=== PATIENT | female | born 1945 | race African-American/Black ===

== ENCOUNTER → 2016-11-29 | Outpatient (CLI) | payer OTHER ==
[~2016-11-29] MED LIST: ALDACTONE25 MG PO; AUGMENTIN 875875 MG PO; CARDURA4 MG PO; COLACE100 MG PO; ENOXAPARIN60 MG/0.1 SUBQ; NORVASC10 MG PO; PROMETHAZINE-C120 ML PO; ROBITUSSIN100 MG/53 PO
== END ==
LOC: RAD 11:49
DX: R06.02 Shortness of breath (principal)

== ENCOUNTER → 2016-12-02 | Outpatient (CLI) | payer OTHER ==
[2016-12-02 13:44] LABS: CALCIUM 8.7 mg/dL (8.5-10.1); CREATININE 0.8 mg/dL (0.6-1.0); POTASSIUM 4.7 mmol/L (3.5-5.1)
[2016-12-02 13:48] LABS: ALBUMIN 2.9 g/dL (3.4-5.0); PROTIME 10.7 Seconds (9.3-11.4); TOTAL BILIRUBIN 0.3 mg/dL (<0.1-1.0); TOTAL PROTEIN 7.8 g/dL (6.4-8.2)
== END | disposition home or self-care (01) ==
LOC: ULTRA 13:08
PROVIDERS: Registered Nurse
DX: J90 Pleural effusion, not elsewhere classified (principal)

== ENCOUNTER → 2016-12-24 | Outpatient (CLI) | payer OTHER ==
[~2016-12-24] VITALS: Ht 165.1 cm; Wt 53.5 kg
[2016-12-24 09:31] VITALS: BP 150/82
== END | disposition home or self-care (01) ==
LOC: SPEC 06:41
DX: C34.92 Malignant neoplasm of unspecified part of left bronchus or lung (principal); J90 Pleural effusion, not elsewhere classified; I10 Essential (primary) hypertension; Z90.710 Acquired absence of both cervix and uterus; Z98.890 Other specified postprocedural states

== ENCOUNTER → 2016-12-31 | Outpatient (CLI) | payer OTHER ==
[~2016-12-31] VITALS: Ht 165.1 cm; Wt 52.2 kg
[2016-12-31 14:19] VITALS: BP 103/61
== END | disposition home or self-care (01) ==
LOC: SPEC 12:08
DX: T85.898A Other specified complication of other internal prosthetic devices, implants and grafts, initial encounter (principal); I10 Essential (primary) hypertension; I50.9 Heart failure, unspecified; Z85.118 Personal history of other malignant neoplasm of bronchus and lung

== ENCOUNTER → 2017-01-13 | Outpatient (CLI) | payer OTHER | LOC: RAD 16:23 | DX: J91.0 Malignant pleural effusion (principal) ==

== ENCOUNTER → 2017-01-16 | Outpatient (CLI) | payer OTHER | LOC: RAD 11:51 | DX: J90 Pleural effusion, not elsewhere classified (principal) ==

== ENCOUNTER → 2017-01-20 | Outpatient (CLI) | payer OTHER | LOC: RAD 08:42 | DX: J90 Pleural effusion, not elsewhere classified (principal) ==

== ENCOUNTER → 2017-01-28 | Outpatient (CLI) | payer OTHER | LOC: RAD 09:08 | DX: J90 Pleural effusion, not elsewhere classified (principal) ==

== ENCOUNTER → 2017-02-18 | Outpatient (CLI) | payer OTHER | LOC: RAD 09:26 | DX: J90 Pleural effusion, not elsewhere classified (principal) ==

== ENCOUNTER → 2017-03-12 | Outpatient (CLI) | payer OTHER, SELFPAY | LOC: RAD 08:13 | DX: J90 Pleural effusion, not elsewhere classified (principal) ==

== ENCOUNTER → 2017-03-14 | Outpatient (CLI) | payer OTHER, SELFPAY ==
[~2017-03-14] VITALS: Ht 162.6 cm; Wt 51.3 kg
[2017-03-14 10:05] VITALS: BP 140/86
== END ==
LOC: SPEC 06:20
DX: Z45.2 Encounter for adjustment and management of vascular access device (principal); Z90.710 Acquired absence of both cervix and uterus; Z85.118 Personal history of other malignant neoplasm of bronchus and lung; I10 Essential (primary) hypertension

== ENCOUNTER 2017-04-21 10:31 | Emergency (ER) | payer OTHER ==
[~2017-04-21] VITALS: Ht 175.3 cm; Wt 54.0 kg
--- NOTE | ~2017-04-21 | EKG ---
[address] [address] ELECTROCARDIOGRAM REPORT Name: ABBYCHRISTY JACE Room #: [facility]P [id number] Admission: 04/21/17 Attend Phys: Discharge: 04/21/17 Date of : 49 Report #: [id number] THIS REPORT FOR: //name// [facility] ED Test Date: 2017-04-21 Test Time: 10:48:46 Pat Name: CHRISTY MORA Department: Room: Gender: F Sales Engagement Executive: ROB : 1945 Requested By: Josy Estrada Order Number: [id number] MD: Ralf Weems Measurements Intervals [place] Rate: 114 P: 45 MS: 157 QRS: -44 QRSD: 77 T: 16 QT: 319 QTc: 440 Interpretive Statements Sinus tachycardia Inferior infarct, old No previous ECG available for comparison Electronically Signed On 04-21-2017 14:07:37 CDT by Ralf Weems [email or web address] <ELECTRONICALLY SIGNED> By: Ralf Weems MD 04/21/17 1407 [id number] [id number] Ralf Weems MD /NOHEMY
[2017-04-21 11:08] LABS: HEMATOCRIT 23.8 % (37.0-47.0); HEMOGLOBIN 7.7 gm/dL (12.0-15.0); MCH 24.4 pg (26.0-34.0); MCHC 32.5 g/dL (28.0-37.0); MCV 75.1 fL (80.0-100.0); PLATELET COUNT 335 thou/uL (150-400); RBC 3.17 mil/uL (4.20-5.00); RDW 15.9 % (10.5-14.5)
[2017-04-21 11:10] LABS: MANUAL DIFF YES
[2017-04-21 11:18] LABS: ABG SAMPLE TYPE ARTERIAL; BE(vivo) -6.1 mmol/L (-2 to +3); HCO3 17.5 mmol/L (22.0-26.0); LACTATE 0.92 mmol/L (0.5-2.0); O2(CT) 11.6 mL/dL (15.0-23.0); PCO2 27.6 mmHg (35.0-45.0); PO2 152.4 mmHg (80.0-100.0); pH 7.421 (7.360-7.450); tCO2 18.4 mmol/L (24.0-30.0)
[2017-04-21 11:19] LABS: ANION GAP 10 mmol/L (7-16); BUN 15 mg/dL (7-18); CALCIUM 8.9 mg/dL (8.5-10.1); CHLORIDE 99 mmol/L (98-107); CO2 19 mmol/L (21-32); CREATININE 0.9 mg/dL (0.6-1.0); GLUCOSE 111 mg/dL (74-106); POTASSIUM 4.2 mmol/L (3.5-5.1); SODIUM 128 mmol/L (136-145)
[2017-04-21 11:19] LABS: STICK SITE R.RADIAL
[2017-04-21 11:29] LABS: ALBUMIN 2.4 g/dL (3.4-5.0); ALKALINE PHOSPHATASE 88 U/L (46-116); DIRECT BILIRUBIN 0.1 mg/dL (<0.1-0.3); SGOT 91 U/L (15-37); SGPT 70 U/L (30-65); TOTAL BILIRUBIN 0.3 mg/dL (<0.1-1.0); TOTAL PROTEIN 7.5 g/dL (6.4-8.2); TROPONIN-I < 0.04 ng/mL (<0.04-0.07)
[2017-04-21 11:32] LABS: ABSOLUTE NEUTROPHILS 3.4 thou/uL (1.4-8.2); PLATELET ESTIMATE NORMAL; TOTAL CELL COUNT 100
[2017-04-21 12:24] LABS: URINE BILIRUBIN NEGATIVE (Negative); URINE BLOOD NEGATIVE (Negative); URINE COLOR YELLOW; URINE GLUCOSE-RANDOM* NEGATIVE (Negative); URINE KETONES NEGATIVE (Negative); URINE NITRITE NEGATIVE (Negative); URINE PROTEIN (DIPSTICK) 1+ (Negative); URINE UROBILINOGEN 0.2 E.U./dl (0.2-1.0)
[2017-04-21 12:31] LABS: SQUAMOUS 4-10 Moderate /LPF (0-3)
[2017-04-21 12:32] LABS: BACTERIA 1-9 Few /HPF (None Seen); CASTS None Seen /LPF (None Seen); CRYSTALS None Seen /LPF (None Seen); URINE RBC None Seen /HPF (0-2); URINE WBC None Seen /HPF (0-5)
[2017-04-21] MEDS ORDERED: PREDNISONE 20 M20 MG PO (13:03)
== END 2017-04-21 13:33 | disposition home or self-care (01) ==
LOC: ER 10:31
PROVIDERS: Emergency Medicine
DX: R07.89 Other chest pain (principal); R06.00 Dyspnea, unspecified; R21 Rash and other nonspecific skin eruption; D64.9 Anemia, unspecified; I10 Essential (primary) hypertension; Z90.710 Acquired absence of both cervix and uterus; Z85.118 Personal history of other malignant neoplasm of bronchus and lung